=== PATIENT | male | born 1975 | race American Indian/Alaskan Native ===

== ENCOUNTER 2019-05-28 02:27 | Emergency (ER) | payer SELFPAY ==
[2019-05-28 02:38] VITALS: BP 142/86
[2019-05-28] MEDS ORDERED: IBUPROFEN PO ONE (04:07)
[2019-05-28] MEDS ORDERED: NORCO 7.5/325 PO ONE (04:07)
[2019-05-28] MEDS ORDERED: ZOFRAN ODT PO ONE (04:07)
[2019-05-28] MEDS ORDERED: AUGMENTIN 875 MG PO ONE (04:07)
--- NOTE | 2019-05-28 04:51 | Emergency Department Report ---
ED General Adult HPI - General Chief complaint: Dental/Oral Stated complaint: ABCESS Source: patient Mode of arrival: Ambulatory Limitations: No Limitations - History of Present Illness Initial comments: Patient is a 44-year-old -[place] male with a history of [id number] diabetes who presents to the ED with complaint of acute onset persistent painful swollen left mandibular premolar molar toothaches and swollen gums for the last 2 weeks, worse in the last 2 days. Patient denies dizziness, fever, chills, nausea, vomiting, sore throat, chest pain, shortness of breath, abdominal pain or ear pain. MD Complaint: dental abscess; swollen gums -: Sudden, week(s) (2) Location: mouth Radiation: non-radiation Severity scale (0 -10): 6 Quality: aching, sharp Consistency: constant Improves with: none Worsens with: eating Associated Symptoms: denies other symptoms, headaches. denies: confusion, chest pain, cough, diaphoresis, fever/chills, loss of appetite, malaise, nausea/vomiting, rash, seizure, shortness of breath, syncope, weakness Treatments Prior to Arrival: NSAID - Related Data Previous Rx's Medication Instructions Recorded Last Taken Type Gentamicin 0.3% Ophth Soln 2 drops OD QID #1 bottle 05/31/15 Unknown Rx metFORMIN [Glucophage] 1,000 mg PO BID #60 tablet 05/31/15 Unknown Rx Ketorolac [Toradol] 10 mg PO Q6H PRN #20 tablet 05/28/19 Unknown Rx Penicillin V Potassium 500 mg PO Q6H #40 tablet 05/28/19 Unknown Rx traMADol [Ultram] 50 mg PO Q6HR PRN #12 tablet 05/28/19 Unknown Rx Allergies Allergy/AdvReac Type Severity Reaction Status Date / Time No Known Allergies Allergy Unverified 05/30/15 21:44 ED Review of Systems ROS: Stated complaint: ABCESS Other details as noted in HPI Constitutional: denies: chills, fever Eyes: denies: eye pain, eye discharge, vision change ENT: dental pain, other (swollen gums). denies: ear pain, throat pain Respiratory: denies: cough, orthopnea, shortness of breath, SOB with exertion, SOB at rest, wheezing Cardiovascular: denies: chest pain, palpitations Endocrine: no symptoms reported Gastrointestinal: denies: abdominal pain, nausea, diarrhea Genitourinary: denies: urgency, dysuria Musculoskeletal: denies: back pain, joint swelling, arthralgia Skin: denies: rash, lesions Neurological: headache. denies: weakness, paresthesias Psychiatric: denies: anxiety, depression Hematological/Lymphatic: denies: easy bleeding, easy bruising ED Past Medical Hx - Past Medical History Hx Diabetes: Yes (metformin 1 g twice a day) Additional medical history: kidney stones - Surgical History Past Surgical History?: No - Social History Smoking Status: Current Some Day Smoker Substance Use Type: Alcohol - Medications Home Medications: Home Medications Medication Instructions Recorded Confirmed Last Taken Type Gentamicin 0.3% Ophth Soln 2 drops OD QID #1 bottle 05/31/15 Unknown Rx metFORMIN [Glucophage] 1,000 mg PO BID #60 tablet 05/31/15 Unknown Rx Ketorolac [Toradol] 10 mg PO Q6H PRN #20 tablet 05/28/19 Unknown Rx Penicillin V Potassium 500 mg PO Q6H #40 tablet 05/28/19 Unknown Rx traMADol [Ultram] 50 mg PO Q6HR PRN #12 tablet 05/28/19 Unknown Rx ED Physical Exam - General Limitations: No Limitations General appearance: alert, in no apparent distress - Head Head exam: Present: atraumatic, normocephalic, normal inspection - Eye Eye exam: Present: normal appearance, PERRL, EOMI. Absent: scleral icterus, conjunctival injection, nystagmus, periorbital swelling, periorbital tenderness Pupils: Present: normal accommodation - ENT ENT exam: Present: normal exam, mucous membranes moist, TM's normal bilaterally, normal external ear exam, other (swollen left mandibular gums; premolar and molar dental caries; premolar tenderness) - Neck Neck exam: Present: normal inspection, full ROM. Absent: tenderness, lymphadenopathy - Respiratory Respiratory exam: Present: normal lung sounds bilaterally. Absent: respiratory distress, wheezes, rales, rhonchi, chest wall tenderness, accessory muscle use - Cardiovascular Cardiovascular Exam: Present: regular rate, normal rhythm, normal heart sounds. Absent: systolic murmur, diastolic murmur, rubs, gallop - GI/Abdominal GI/Abdominal exam: Present: soft, normal bowel sounds. Absent: tenderness, guarding, hyperactive bowel sounds, hypoactive bowel sounds, organomegaly - Rectal Rectal exam: Present: deferred - Extremities Exam Extremities exam: Present: normal inspection, full ROM, normal capillary refill - Back Exam Back exam: Present: normal inspection, full ROM. Absent: tenderness, CVA tenderness (R), CVA tenderness (L), muscle spasm, paraspinal tenderness - Neurological Exam Neurological exam: Present: alert, oriented X3, CN II-XII intact, normal gait, reflexes normal - Psychiatric Psychiatric exam: Present: normal affect, normal mood - Skin Skin exam: Present: warm, dry, intact, normal color. Absent: rash ED Course Vital Signs 05/28/19 05/28/19 05/28/19 02:33 04:28 04:29 Temperature 98.0 F Pulse Rate 67 Respiratory 16 16 16 Rate Blood Pressure 142/86 O2 Sat by Pulse 99 Oximetry - Reevaluation(s) Reevaluation #1: 05/28/19 04:50 This is a 44-year-old male who presented to the ED with swollen gums and dental pain for 2 weeks. In the ED, patient is alert and oriented 3 and is not in distress but appears to be in pain. Patient was treated for pain in the ED and discharged home on antibiotics and pain medications. Patient was advised to follow-up with a dentist in 7-10 days or return to the ED immediately if symptoms get worse. ED Medical Decision Making - Medical Decision Making This is a 44-year-old male who presented to the ED with swollen gums and dental pain for 2 weeks. In the ED, patient is alert and oriented 3 and is not in distress but appears to be in pain. Patient was treated for pain in the ED and discharged home on antibiotics and pain medications. Patient was advised to follow-up with a dentist in 7-10 days or return to the ED immediately if symptoms get worse. - Differential Diagnosis dental caries; dental abscess; acute gingivitis Critical care attestation.: If time is entered above; I have spent that time in minutes in the direct care of this critically ill patient, excluding procedure time. ED Disposition Clinical Impression: Dental abscess, Acute gingivitis, Dental caries Disposition: TO HOME OR SELFCARE Is pt being admited?: No Does the pt Need Aspirin: No Condition: Stable Instructions: Dental Abscess (ED), Dental Caries (ED), Gingivitis (ED) Additional Instructions: Take medication with food, drink plenty of fluids and follow-up with your dentist in 7-10 days for reevaluation. Return to the ED immediately if symptoms worse. Prescriptions: Penicillin V Potassium 500 mg PO Q6H #40 tablet Ketorolac [Toradol] 10 mg PO Q6H PRN #20 tablet PRN Reason: Pain traMADol [Ultram] 50 mg PO Q6HR PRN #12 tablet PRN Reason: Pain Referrals: MEREDITH AMARAL MD [Primary Care Provider] - 3-5 Days Time of Disposition: 04:52 Print Language: [place]
== END 2019-05-28 05:00 | disposition home or self-care (01) ==
LOC: ED 02:27
DX: K02.9 Dental caries, unspecified (principal); K04.7 Periapical abscess without sinus; K05.00 Acute gingivitis, plaque induced
CPT/HCPCS: 99282; Q0162